=== PATIENT | male | born 1945 | race Caucasian/White ===

== ENCOUNTER 2016-11-21 13:02 | Emergency (ER) | payer SELFPAY ==
[~2016-11-21] VITALS: Ht 152.4 cm; Wt 63.5 kg
--- NOTE | 2016-11-21 13:20 | NUR ---
Ambulatory to bed 3, placed in gown for evaluation
[2016-11-21 13:21] VITALS: BP 132/69; PULSE 63; RESP 16; TEMP 97.1; O2SAT 96
--- NOTE | 2016-11-21 13:35 | NUR ---
ED MD Mccarthy at bedside for medical examination.
--- NOTE | 2016-11-21 13:37 | NUR ---
Pt arrived to ED via walk in A/O x 4 with chief complaint of ABD pain x 10 days. Pt states mid epigastric burning feeling with ABD distension. Reports pain of 6/10 with reduction of pain when pressure is applied to the upper quadrants. Denies N/V/D. ABD sounds present x 4. Hx. of gastric ulcer. Will continue to monitor.
--- NOTE | 2016-11-21 13:55 | NUR ---
Family at bedside. PT sitting up in bed. Does not appear in any acute distress. Will continue to monitor.
[2016-11-21] MEDS ORDERED: MAG HYDROX/AL HYDROX/SIMETH 30 ML, BELLADONNA ALKALOIDS/PHENOBARB 10 ML, LIDOCAINE VISC... PO ONE ×3 (14:00)
[2016-11-21 14:17] LABS: BILIRUBIN,URINE NEGATIVE (NEGATIVE); CLARITY/URINE CLEAR (CLEAR); COLOR,URINE YELLOW (YELLOW); GLUCOSE,URINE NEGATIVE (NEGATIVE); KETONES,URINE NEGATIVE (NEGATIVE); LEUKOCYTE ESTERASE ,URINE 2+ (NEGATIVE); NITRITE, URINE POSITIVE (NEGATIVE); PH,URINE 5.5 (5.0-8.0); PROTEIN URINE NEGATIVE (NEGATIVE); UROBILINOGEN,URINE 0.2 (0.2-1.0)
[2016-11-21 14:18] LABS: BLOOD, URINE TRACE (NEGATIVE)
[2016-11-21 14:25] LABS: BACTERIA,URINE MANY /HPF (None Seen); RBC,URINE 0-3 /HPF (0-3); WBC,URINE 20-50 /HPF (0-3)
[2016-11-21 14:27] LABS: ANION GAP 3 (5-15); CALCIUM 8.9 mg/dL (8.4-11.0); CHLORIDE 104 mmol/L (98-107); CREATININE 1.03 mg/dL (0.55-1.30); GLUCOSE 95 mg/dL (70-99); POTASSIUM 3.7 mmol/L (3.5-5.1); SODIUM SERUM 135 mmol/L (136-145); UREA NITROGEN, BLOOD 18 mg/dL (8-21)
[2016-11-21 14:32] LABS: BASOPHILS # (AUTO) 0.1 K/uL (0.0-0.2); BASOPHILS % (AUTO) 1.3 % (0.0-2.0); EOSINOPHILS # (AUTO) 0.3 K/uL (0.0-0.4); EOSINOPHILS % (AUTO) 2.7 % (0.0-4.0); HEMATOCRIT 43.8 % (36-54); HEMOGLOBIN 14.9 g/dL (14.0-18.0); LYMPHOCYTES # (AUTO) 2.1 K/uL (1.0-5.5); LYMPHOCYTES % (AUTO) 20.6 % (20.5-51.5); MEAN CORPUSCULAR HEMOGLOBIN 32 pg (27-31); MEAN CORPUSCULAR HGB CONC 34 % (32-36); MEAN CORPUSCULAR VOLUME 93 fL (79.0-98.0); MONOCYTES # (AUTO) 0.8 K/uL (0.0-1.0); MONOCYTES % (AUTO) 7.6 % (1.7-9.3); NEUTROPHILS # (AUTO) 6.7 K/uL (1.8-7.7); NEUTROPHILS % (AUTO) 67.8 % (40.0-70.0); PLATELET COUNT (AUTO) 252 K/uL (130-430); RED BLOOD CELL COUNT(AUTO) 4.71 MIL/uL (4.2-6.2); RED CELL DISTRIBUTION WIDTH 12.4 % (9.0-15.0)
[2016-11-21 14:33] LABS: ALANINE AMINOTRANSFERASE 24 U/L (12-78); ALBUMIN 4.1 g/dL (3.4-4.8); ASPARTATE AMINOTRANSFERASE 18 U/L (10-37); LIPASE 217 U/L (73-393); TOTAL BILIRUBIN 0.3 mg/dL (0.0-1.0); TOTAL PROTEIN, SERUM 8.3 g/dL (6.4-8.3)
[2016-11-21 14:34] LABS: INR 0.9 (0.80-1.20); PROTHROMBIN TIME 10.1 SECS (9.5-12.5)
--- NOTE | 2016-11-21 14:36 | NUR ---
Ultrasound at bedside
--- NOTE | 2016-11-21 15:48 | NUR ---
Patient and family given written and verbal discharge instructions and verbalizes understanding. ER MD discussed with patient and family the results and treatment provided. Given copies of tests performed in ER. Patient in stable condition. ID arm band removed. IV catheter removed intact and dressing applied, no active bleeding. Rx of Pepcid and Ciprofloxacin given. Patient and family educated on pain management and to follow up with PMD. Pain Scale 2. Opportunity for questions provided and answered.
[2016-11-21 15:52] VITALS: BP 132/68; PULSE 64; RESP 20; TEMP 98.2; O2SAT 100
== END 2016-11-21 15:52 | disposition home or self-care (01) ==
LOC: SED 13:02
DX: N39.0 Urinary tract infection, site not specified (principal); R31.9 Hematuria, unspecified; R10.13 Epigastric pain; R03.0 Elevated blood-pressure reading, without diagnosis of hypertension
CPT/HCPCS: 36415; 76700; 80053; 81000; 83690; 85025; 85610; 85730; 87086; 87186; 99285; J2001

== ENCOUNTER 2016-12-02 12:23 | Emergency (ER) | payer SELFPAY ==
[~2016-12-02] VITALS: Ht 162.6 cm; Wt 60.3 kg
[2016-12-02 12:34] VITALS: BP 137/66; PULSE 68; RESP 16; TEMP 97.5; O2SAT 99
[2016-12-02 12:56] LABS: BILIRUBIN,URINE NEGATIVE (NEGATIVE); BLOOD, URINE NEGATIVE (NEGATIVE); CLARITY/URINE SL HAZY (CLEAR); COLOR,URINE YELLOW (YELLOW); GLUCOSE,URINE NEGATIVE (NEGATIVE); KETONES,URINE NEGATIVE (NEGATIVE); LEUKOCYTE ESTERASE ,URINE 2+ (NEGATIVE); NITRITE, URINE NEGATIVE (NEGATIVE); PH,URINE 5.5 (5.0-8.0); PROTEIN URINE NEGATIVE (NEGATIVE); UROBILINOGEN,URINE 0.2 (0.2-1.0)
[2016-12-02 13:10] LABS: BACTERIA,URINE MODERATE /HPF (None Seen); RBC,URINE NONE SEEN /HPF (0-3)
[2016-12-02 13:20] VITALS: BP 137/66; PULSE 68; RESP 16; TEMP 97.5; O2SAT 99
== END 2016-12-02 13:20 | disposition home or self-care (01) ==
LOC: SED 12:23
DX: N39.0 Urinary tract infection, site not specified (principal); F17.200 Nicotine dependence, unspecified, uncomplicated
CPT/HCPCS: 81000-TC; 87086; 87186-TC; 99284

== ENCOUNTER 2022-05-17 20:49 | Inpatient (IN) | payer MEDICAID ==
[~2022-05-17] VITALS: Ht 160 cm; Wt 63.5 kg
[2022-05-17 21:13] VITALS: BP_SYST 127
[2022-05-17] MEDS ORDERED: PROCHLORPERAZINE EDISYLATE 10 MG/2 ML VIAL IVP ONE (22:30)
[2022-05-17] MEDS ORDERED: NACL 0.9% 2,000 ML IV ONE (22:30)
[2022-05-17 23:12] LABS: BASOPHILS # (AUTO) 0.3 K/uL (0.0-0.2); BASOPHILS % (AUTO) 3.3 % (0.0-2.0); EOSINOPHILS # (AUTO) 0.6 K/uL (0.0-0.4); EOSINOPHILS % (AUTO) 6.6 % (0.0-4.0); HEMATOCRIT 42.5 % (36-54); LYMPHOCYTES # (AUTO) 1.7 K/uL (1.0-5.5); LYMPHOCYTES % (AUTO) 17.5 % (20.5-51.5); MEAN CORPUSCULAR HEMOGLOBIN 33 pg (27-31); MEAN CORPUSCULAR HGB CONC 35 % (32-36); MEAN CORPUSCULAR VOLUME 93 fL (79.0-98.0); MONOCYTES # (AUTO) 0.7 K/uL (0.0-1.0); MONOCYTES % (AUTO) 6.9 % (1.7-9.3); NEUTROPHILS # (AUTO) 6.5 K/uL (1.8-7.7); NEUTROPHILS % (AUTO) 65.7 % (40.0-70.0); PLATELET COUNT (AUTO) 342 K/uL (130-430); RED BLOOD CELL COUNT(AUTO) 4.58 MIL/uL (4.2-6.2); WHITE BLOOD COUNT (AUTO) 9.8 K/uL (4.8-10.8)
[2022-05-17 23:32] LABS: ANION GAP 13 (5-15); CALCIUM 8.8 mg/dL (8.4-11.0); CHLORIDE 100 mmol/L (98-107); CREATININE 1.07 mg/dL (0.55-1.30); GLUCOSE 102 mg/dL (70-99); POTASSIUM 3.8 mmol/L (3.5-5.1); UREA NITROGEN, BLOOD 14 mg/dL (8-21)
[2022-05-17 23:37] LABS: ALANINE AMINOTRANSFERASE 12 U/L (12-78); ALBUMIN 3.2 g/dL (3.4-4.8); ASPARTATE AMINOTRANSFERASE 21 U/L (10-37); LIPASE 108 U/L (73-393); TOTAL BILIRUBIN 0.4 mg/dL (0.0-1.0)
[2022-05-18] MEDS ORDERED: PROCHLORPERAZINE EDISYLATE 10 MG/2 ML VIAL IVP ONE (00:15)
[2022-05-18] MEDS ORDERED: LORazepam 2 MG/ML VIAL IVP ONE (01:00)
[2022-05-18] MEDS ORDERED: FOLIC ACID 1 MG, THIAMINE HCL 100 MG, MAGNESIUM SULFATE 1 GM, MVI 10 ML in NACL 0.9% 1,... IV ONE (01:00)
[2022-05-18] MEDS ORDERED: PANTOPRAZOLE SODIUM 40 MG/VIAL (PROTONIX) IVP SCH (01:15)
[2022-05-18] MEDS ORDERED: FOLIC ACID 1 MG, THIAMINE HCL 100 MG, MAGNESIUM SULFATE 1 GM, MVI 10 ML in NACL 0.9% 1,... IV SCH (01:15)
[2022-05-18] MEDS ORDERED: ONDANSETRON HCL 4 MG/2 ML VIAL IVP PRN (01:15)
[2022-05-18] MEDS ORDERED: LORazepam 2 MG/ML VIAL IVP PRN (01:15)
[2022-05-18] MEDS ORDERED: THIAMINE HCL 100 MG/ML VIAL ONE (01:25)
[2022-05-18] MEDS ORDERED: FOLIC ACID 5 MG/ML VIAL IV ONE (01:25)
[2022-05-18] MEDS ORDERED: MAGNESIUM SULFATE 1 GM/2 ML VIAL ONE (01:25)
[2022-05-18] MEDS ORDERED: MVI 10 ML VIAL IV ONE (01:25)
[2022-05-18] MEDS ORDERED: chlordiazePOXIDE HCL 25 MG CAPSULE PO ONE (01:30)
[2022-05-18 03:30] VITALS: BP_SYST 129
[2022-05-18] MEDS ORDERED: THIAMINE HCL 100 MG, MAGNESIUM SULFATE 1 GM in NS 100 ML IV SCH ×2 (07:00→10:00)
[2022-05-18] MEDS ORDERED: FOLIC ACID 1 MG, MVI 10 ML in NACL 0.9% 1,000 ML IV SCH ×2 (07:00→10:00)
[2022-05-18] MEDS ORDERED: MULTIVITS,CA,MINERALS/IRON/FA 1 TABLET PO ONE (11:00)
[2022-05-18 12:00] VITALS: BP_SYST 128
[2022-05-19] MEDS ORDERED: MULTIVITS,CA,MINERALS/IRON/FA 1 TABLET PO SCH (09:00)
== END 2022-05-18 15:35 | disposition left against medical advice (07) | DRG 249 ==
LOC: SED 20:49 → STU 05-18 01:08
PROVIDERS: ADMIT Internal Medicine; ATTEND Internal Medicine
DX: R11.10 Vomiting, unspecified (principal); F10.139 Alcohol abuse with withdrawal, unspecified; F17.200 Nicotine dependence, unspecified, uncomplicated; Y90.9 Presence of alcohol in blood, level not specified; Z20.822 Contact with and (suspected) exposure to COVID-19
CPT/HCPCS: 36415; 70450-TC; 71045; 74018; 76376; 80053; 83690; 84484; 85025; G0378; J0780; J2060; J3411; J3475; J3490; J7030

== ENCOUNTER 2024-04-30 14:12 | Emergency (ER) | payer MEDICAID ==
[~2024-04-30] VITALS: Ht 154.9 cm; Wt 56.7 kg
[2024-04-30 14:26] VITALS: BP_SYST 132; PULSE 85; RESP 18; TEMP 98.3; O2SAT 98
[2024-04-30 14:57] LABS: BASOPHILS % (AUTO) 0.3 % (0.0-2.0); HEMATOCRIT 33.7 % (36-54); HEMOGLOBIN 11.1 g/dL (14.0-18.0); LYMPHOCYTES # (AUTO) 0.5 K/uL (1.0-5.5); LYMPHOCYTES % (AUTO) 3.5 % (20.5-51.5); MEAN CORPUSCULAR HEMOGLOBIN 29 pg (27-31); MEAN CORPUSCULAR HGB CONC 33 % (32-36); MEAN CORPUSCULAR VOLUME 87 fL (79.0-98.0); MONOCYTES # (AUTO) 0.9 K/uL (0.0-1.0); NEUTROPHILS # (AUTO) 13.3 K/uL (1.8-7.7); NEUTROPHILS % (AUTO) 90.2 % (40.0-70.0); PLATELET COUNT (AUTO) 253 K/uL (130-430); RED BLOOD CELL COUNT(AUTO) 3.88 MIL/uL (4.2-6.2); RED CELL DISTRIBUTION WIDTH 18.9 % (9.0-15.0); WHITE BLOOD COUNT (AUTO) 14.8 K/uL (4.8-10.8)
[2024-04-30 15:09] LABS: INR 0.9 (0.80-1.20); PROTHROMBIN TIME 9.8 SECS (9.5-12.5)
[2024-04-30 15:21] LABS: ANION GAP 22 (5-15); CALCIUM 8.8 mg/dL (8.4-11.0); CARBON DIOXIDE 19 mmol/L (23-29); CHLORIDE 99 mmol/L (98-107); GLUCOSE 117 mg/dL (74-106); POTASSIUM 4.1 mmol/L (3.5-5.1); SODIUM SERUM 140 mmol/L (136-145)
[2024-04-30 15:22] LABS: ALANINE AMINOTRANSFERASE 31 U/L (12-78); ALBUMIN 3.1 g/dL (3.4-4.8); AMYLASE 62 U/L (0-100); ASPARTATE AMINOTRANSFERASE 46 U/L (10-37); BILIRUBIN,DIRECT 0.3 mg/dL (0.0-0.3); CREATININE 0.94 mg/dL (0.55-1.30); LIPASE 45 U/L (16-77); TOTAL BILIRUBIN 0.7 mg/dL (0.0-1.0); TOTAL PROTEIN, SERUM 7.5 g/dL (6.4-8.3); UREA NITROGEN, BLOOD 30 mg/dL (8-21)
[2024-04-30] MEDS ORDERED: IBUP-1969 PO (16:32)
[2024-04-30] MEDS ORDERED: LORA-259 PO (16:32)
[2024-04-30] MEDS ORDERED: OMEP20CA15 PO (16:32)
[2024-04-30] MEDS ORDERED: AMOX-423 PO (16:32)
== END 2024-04-30 16:54 | disposition home or self-care (01) ==
LOC: SED 14:12
DX: K57.91 Diverticulosis of intestine, part unspecified, without perforation or abscess with bleeding (principal); F10.129 Alcohol abuse with intoxication, unspecified; Z87.19 Personal history of other diseases of the digestive system; Y90.6 Blood alcohol level of 120-199 mg/100 ml
CPT/HCPCS: 99284; 74176; 80076; 80048; 82150; 83690; 85025; 85610; 85730; 86886; 86900; 86901; 36415; 83605; G0482